=== PATIENT | female | born 1985 | race Caucasian/White ===

== ENCOUNTER 2018-06-07 07:30 | Day surgery (SDC) | payer OTHER | END 2018-10-25 | LOC: DS 07:30 → OR 07:30 → DS 10-25 06:06 → OR 08:30 → DS 10-25 06:06 ==

== ENCOUNTER 2018-10-21 22:35 | Emergency (ER) | payer OTHER ==
[~2018-10-21] VITALS: Ht 167.6 cm; Wt 92.5 kg
[2018-10-21 22:38] VITALS: Ht 167.6 cm; Wt 92.5 kg
[2018-10-21 23:42] LABS: BASOPHIL % 0.3 % (0-2)
[2018-10-21 23:48] LABS: PLATELET COUNT 420 x10^3mcL (130-400); RED CELL DISTRIBUTION WIDTH 17.3 % (11.5-14.5)
[2018-10-21 23:49] LABS: CALCIUM 8.4 mg/dL (8.5-10.1); CARBON DIOXIDE 28.4 mmol/L (21-32); CHLORIDE SERUM 104 mmol/L (98-107); CREATININE SERUM 0.8 mg/dL (0.6-1.0); GFR1 > 60 mL/min; GLUCOSE SERUM 118 mg/dL (74-106); POTASSIUM SERUM 3.7 mmol/L (3.5-5.1); SODIUM SERUM 138 mmol/L (136-145)
[2018-10-22 02:05] VITALS: BP 121/51
[2018-10-22 02:35] LABS: UA SPECIFIC GRAVITY <=1.005 (1.005-1.035); microscopic required? YES; urine erythrocyte 1+ (NEGATIVE)
== END 2018-10-22 02:05 | disposition home or self-care (01) ==
LOC: ED 22:35
PROVIDERS: Emergency Medicine
DX: D25.9 Leiomyoma of uterus, unspecified (principal); N92.0 Excessive and frequent menstruation with regular cycle; D64.9 Anemia, unspecified; N39.0 Urinary tract infection, site not specified; Z98.890 Other specified postprocedural states
CPT/HCPCS: J7030; Q0092

== ENCOUNTER 2018-12-20 06:24 | Day surgery (SDC) | payer OTHER ==
--- NOTE | 2018-12-19 07:26 | NUR ---
RECEIVED LAB RESULTS FROM [facility]. HB=8.8, HCT=31.0. RESULTS FAXED TO DR GALLOWAY.
[~2018-12-20] VITALS: Ht 165.1 cm; Wt 93.0 kg
[2018-12-20 07:01] VITALS: BP 115/65
[2018-12-20 12:51] VITALS: BP 132/83
== END 2018-12-20 11:55 | disposition home or self-care (01) ==
LOC: DS 06:24 → OR 08:30 → DS 11:55
DX: Z30.2 Encounter for sterilization (principal); E66.3 Overweight; Z90.49 Acquired absence of other specified parts of digestive tract; Z98.890 Other specified postprocedural states; Z68.34 Body mass index [BMI] 34.0-34.9, adult
CPT/HCPCS: J0330; J0690; J1170; J2175; J2250; J2270; J2405; J2704; J3010; J3490; J7120